=== PATIENT | male | born 1980 | race Hispanic/Latino ===

== ENCOUNTER 2017-04-17 23:46 | Emergency (ER) | payer OTHER ==
[2017-04-17] MEDS ORDERED: BOOSTRIX IM ONE (23:58)
[2017-04-18 00:16] VITALS: BP 130/88
[2017-04-18] MEDS ORDERED: BOOSTRIX IM ONE (00:27)
--- NOTE | 2017-04-18 00:34 | Emergency Department Report ---
ED Lower Extremity HPI - General Chief Complaint: Extremity Injury, Lower Stated Complaint: TETANUS SHOT Time Seen by Provider: 04/18/17 00:30 Source: patient Mode of arrival: Ambulatory Limitations: No Limitations - History of Present Illness Initial Comments: 36-year-old male past medical history none presents with complaint of accidentally stepping on a nail while at work. 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 Superficial. Patient denies any other injuries. Is requesting a tetanus update. Patient is awake alert and oriented not in acute distress no other complaints or injuries otherwise. States that the nail went through his boot. MD Complaint: foot injury Onset/Timin -: hour(s) Injury: Foot: Right (puncture wound due to nail through a right foot) Place: work Severity: mild Context: stepped on nail - Related Data Home Medications Medication Instructions Recorded Confirmed Last Taken Lisinopril 2.5 mg PO DAILY 04/18/17 04/18/17 04/18/17 metFORMIN [Glucophage] 1,000 mg PO QDAY 04/18/17 04/18/17 04/18/17 Previous Rx's Medication Instructions Recorded Last Taken Type Azithromycin [Zithromax TAB] 500 mg PO QDAY #3 tablet 07/03/16 Unknown Rx Ciprofloxacin HCl [Ciprofloxacin 500 mg PO Q12HR #14 tab 04/18/17 Unknown Rx TAB] Sulfamethoxazole/Trimethoprim 1 each PO BID #14 tablet 04/18/17 Unknown Rx [Bactrim DS TAB] Allergies Allergy/AdvReac Type Severity Reaction Status Date / Time No Known Allergies Allergy Verified 04/18/17 00:06 ED Review of Systems ROS: Stated complaint: TETANUS SHOT Other details as noted in HPI Constitutional: denies: chills, fever Eyes: denies: eye pain, eye discharge, vision change ENT: denies: ear pain, throat pain Respiratory: denies: cough, shortness of breath, wheezing Cardiovascular: denies: chest pain, palpitations Endocrine: no symptoms reported Gastrointestinal: denies: abdominal pain, nausea, diarrhea Genitourinary: denies: urgency, dysuria Musculoskeletal: denies: back pain, joint swelling, arthralgia Skin: denies: rash, lesions Neurological: denies: headache, weakness, paresthesias Psychiatric: denies: anxiety, depression Hematological/Lymphatic: denies: easy bleeding, easy bruising ED Past Medical Hx - Past Medical History Previous Medical History?: Yes Hx Diabetes: Yes (Pre-diabetic) - Surgical History Past Surgical History?: Yes Additional Surgical History: Cystoscope 2 years ago. Mole removal 2 years ago - Social History Smoking Status: Current Every Day Smoker Substance Use Type: None - Medications Home Medications: Home Medications Medication Instructions Recorded Confirmed Last Taken Type Azithromycin [Zithromax TAB] 500 mg PO QDAY #3 tablet 07/03/16 Unknown Rx Ciprofloxacin HCl [Ciprofloxacin 500 mg PO Q12HR #14 tab 04/18/17 Unknown Rx TAB] Lisinopril 2.5 mg PO DAILY 04/18/17 04/18/17 04/18/17 History Sulfamethoxazole/Trimethoprim 1 each PO BID #14 tablet 04/18/17 Unknown Rx [Bactrim DS TAB] metFORMIN [Glucophage] 1,000 mg PO QDAY 04/18/17 04/18/17 04/18/17 History ED Physical Exam - General Limitations: No Limitations General appearance: alert, in no apparent distress - Head Head exam: Present: atraumatic, normocephalic - Eye Eye exam: Present: normal appearance, PERRL, EOMI - ENT ENT exam: Present: mucous membranes moist - Neck Neck exam: Present: normal inspection - Respiratory Respiratory exam: Present: normal lung sounds bilaterally. Absent: respiratory distress - Cardiovascular Cardiovascular Exam: Present: regular rate, normal rhythm. Absent: systolic murmur, diastolic murmur, rubs, gallop - GI/Abdominal GI/Abdominal exam: Present: soft, normal bowel sounds - Rectal Rectal exam: Present: deferred - Extremities Exam Extremities exam: Present: normal inspection - Expanded Lower Extremity Exam Right Hip exam: Present: normal inspection, full ROM Upper Leg exam: Present: normal inspection, full ROM Knee exam: Present: normal inspection, full ROM Lower Leg exam: Present: normal inspection, full ROM Ankle exam: Present: normal inspection, full ROM Foot/Toe exam: Present: puncture wound (small superficial puncture wound right sole of foot less than half a centimeter) Neuro vascular tendon exam: Present: no vascular compromise (distal pulses are intact) Gait: Positive: observed and normal 1 - Tiny superficial puncture wound here - Back Exam Back exam: Present: normal inspection - Neurological Exam Neurological exam: Present: alert, oriented X3, CN II-XII intact, normal gait - Psychiatric Psychiatric exam: Present: normal affect, normal mood - Skin Skin exam: Present: warm, dry, intact, normal color. Absent: rash ED Course Vital Signs 04/18/17 00:12 Temperature 98.5 F Pulse Rate 90 Respiratory 18 Rate Blood Pressure 130/88 Blood Pressure 130/88 [Right] O2 Sat by Pulse 99 Oximetry ED Lower Extremity MDM - Medical Decision Making A/P: Puncture wound right foot 1-tetanus updated today 2-I advised patient to take close attention to the appearance of his right foot at sole of foot and educated him on signs and symptoms of cellulitis. As patient stepped on nail and it went through the shoe there is a risk of pseudomonal infection. I provided patient with prescription for ciprofloxacin and advised him to start it if skin on bottom of foot becomes red swollen indurated and erythematous. I advised him to return to the ED for reassessment if the symptoms manifest in his foot. 3-Motrin when necessary for pain Critical care attestation.: If time is entered above; I have spent that time in minutes in the direct care of this critically ill patient, excluding procedure time. ED Disposition Clinical Impression: Puncture wound of right foot Qualifiers: Encounter type: initial encounter Qualified Code(s): S91.331A - Puncture wound without foreign body, right foot, initial encounter Disposition: - TO HOME OR SELFCARE Is pt being admited?: No Does the pt Need Aspirin: No Condition: Stable Instructions: Puncture Wound (ED) Prescriptions: Ciprofloxacin HCl [Ciprofloxacin TAB] 500 mg PO Q12HR #14 tab Sulfamethoxazole/Trimethoprim [Bactrim DS TAB] 1 each PO BID #14 tablet Referrals: JENN GARCIA MD [Staff Physician] - 3-5 Days MONCHO MARIN DPM [Staff Physician] - 3-5 Days Time of Disposition: 00:35
== END 2017-04-18 00:41 | disposition home or self-care (01) ==
LOC: ED 23:46
DX: S91.331A Puncture wound without foreign body, right foot, initial encounter (principal); F17.200 Nicotine dependence, unspecified, uncomplicated; E11.9 Type 2 diabetes mellitus without complications; W22.8XXA Striking against or struck by other objects, initial encounter; Y93.89 Activity, other specified; Y99.8 Other external cause status; Y92.89 Other specified places as the place of occurrence of the external cause
CPT/HCPCS: 90471; 90715; 99282